=== PATIENT | male | born 1965 | race Hispanic/Latino ===

== ENCOUNTER 2020-03-23 22:39 | Emergency (ER) | payer OTHER, BC ==
[2020-03-23] MEDS ORDERED: LIDOCAINE HCL 2% VISCOUS 15 ML UDCUP ONE (23:51)
[2020-03-23] MEDS ORDERED: MAG HYDROX/AL HYDROX/SIMETH ES 30 ML SUSP UDCUP ONE (23:51)
[2020-03-23] MEDS ORDERED: DEXAMETHASONE SOD PHOSPHATE 10MG/ML 1ML VIAL ONE (23:53)
== END 2020-03-24 00:03 | disposition home or self-care (01) ==
LOC: EDH 22:39
DX: K13.79 Other lesions of oral mucosa (principal); B00.89 Other herpesviral infection; Z98.52 Vasectomy status
CPT/HCPCS: 99283; J1100

== ENCOUNTER → 2023-07-15 | Outpatient (CLI) | payer OTHER ==
[2023-07-15 09:08] LABS: INR 0.98 (0.85-1.15); PROTHROMBIN TIME 11.4 SEC (9.6-11.6)
[2023-07-15 09:10] LABS: PARTIAL THROMBOPLASTIN TIME 28.8 SEC (26.3-35.5)
== END | disposition home or self-care (01) ==
LOC: RAH 08:07
PROVIDERS: ATTEND Physician Assistant Medical
DX: R59.0 Localized enlarged lymph nodes (principal); G47.33 Obstructive sleep apnea (adult) (pediatric); K57.30 Diverticulosis of large intestine without perforation or abscess without bleeding; H93.19 Tinnitus, unspecified ear; M17.0 Bilateral primary osteoarthritis of knee; H91.90 Unspecified hearing loss, unspecified ear; N52.9 Male erectile dysfunction, unspecified; L71.9 Rosacea, unspecified; D35.2 Benign neoplasm of pituitary gland; Z82.49 Family history of ischemic heart disease and other diseases of the circulatory system; Z80.42 Family history of malignant neoplasm of prostate; Z80.1 Family history of malignant neoplasm of trachea, bronchus and lung; Z98.52 Vasectomy status; Z86.16 Personal history of COVID-19; Z98.890 Other specified postprocedural states; Z79.01 Long term (current) use of anticoagulants; Z79.899 Other long term (current) drug therapy
CPT/HCPCS: 36415; 38505; 76942; 85610; 85730; 88184; 88185; 88188; 88305

== ENCOUNTER 2023-08-23 07:28 | Day surgery (SDC) | payer OTHER ==
[2023-08-23] VITALS (14 sets, daily range): BP systolic 117–154; BP diastolic 64–87; PULSE 54–79; RESP 12–18
[~2023-08-23] VITALS: Ht 175.3 cm; Wt 102.9 kg
[~2023-08-23 07:28] MED LIST: CABE0.5T2 PO; CHOL200074 PO; LOSA50TA64 PO; MULTIVITAMIN PO; SILD100T PO
[2023-08-23 08:21] LABS: BASOPHILS # (AUTO) 0.03 K/uL (0.00-0.20); BASOPHILS % (AUTO) 0.5 % (0.0-5.0); EOSINOPHILS % (AUTO) 1.7 % (0.0-8.0); HEMATOCRIT 41.6 % (42-54); IMMATURE GRANULOCYTE ABSOLUTE 0.01 K/uL (0-1); LYMPHOCYTES % (AUTO) 32.7 % (21.0-51.0); MEAN CORPUSCULAR HEMOGLOBIN 27.8 pg (27.0-33.0); MEAN CORPUSCULAR HGB CONC 32.9 g/dL (32.0-36.0); MEAN CORPUSCULAR VOLUME 84.4 fL (79-99); MONOCYTES # (AUTO) 0.6 K/uL (0.1-1.0); MONOCYTES % (AUTO) 9.7 % (3.0-13.0); NEUTROPHILS # (AUTO) 3.3 K/uL (1.8-7.7); NEUTROPHILS % (AUTO) 55.2 % (40.0-77.0); PLATELET COUNT (AUTO) 221 K/uL (130-400); RED BLOOD CELL COUNT(AUTO) 4.93 MIL/uL (4.50-6.20); RED CELL DISTRIBUTION WIDTH 13.1 % (11.0-15.5)
[2023-08-23 08:39] LABS: INR 0.97 (0.85-1.15); PROTHROMBIN TIME 11.3 SEC (9.6-11.6)
[2023-08-23 08:40] LABS: PARTIAL THROMBOPLASTIN TIME 28.8 SEC (26.3-35.5)
[2023-08-23 08:41] LABS: CREATININE 0.9 mg/dL (0.5-1.5); POTASSIUM 4.2 mmol/L (3.5-5.1)
[2023-08-23] MEDS ORDERED: BUPIVACAINE/PF 0.5% 30ML VIAL ONE (08:46)
[2023-08-23] MEDS: CEFAZOLIN SODIUM 2 GM VIAL ONE ×2 (09:07→09:10)
[2023-08-23] MEDS ORDERED: LACTATED RINGERS 1000ML 1,000 ML IV ONE (09:07)
[2023-08-23] MEDS ORDERED: ONDANSETRON 4MG INJ ONE (09:08)
[2023-08-23] MEDS ORDERED: MIDAZOLAM HCL 1 MG/ML 2ML VIAL ONE (09:08)
[2023-08-23] MEDS ORDERED: ROCURONIUM 10MG/1ML SYR 10 MG/ML ML ONE (09:09)
[2023-08-23] MEDS ORDERED: PROPOFOL 10 MG/ML 20ML VIAL IV ONE (09:09)
[2023-08-23] MEDS ORDERED: FENTANYL CITRATE PF 50 MCG/1 ML 2ML VIAL ONE (09:09)
[2023-08-23] MEDS ORDERED: LIDOCAINE PF 100MG/5ML (2%) SYRINGE 5ML ONE (09:09)
[2023-08-23] MEDS ORDERED: SUCCINYLCHOLINE 200MG/10ML SYR ONE (09:09)
[2023-08-23] MEDS ORDERED: TRAM50TA4 PO (09:52)
[2023-08-23] MEDS ORDERED: DOCU-116 PO (09:52)
[2023-08-23] MEDS ORDERED: GABA-529 PO (09:52)
[2023-08-23] MEDS ORDERED: GLYCOPYRROLATE 1 MG/5 ML SYRINGE ONE (09:54)
[2023-08-23] MEDS ORDERED: NEOSTIGMINE 5MG/5ML SYR IV ONE (09:54)
[2023-08-23] MEDS ORDERED: SUGAMMADEX SODIUM 200 MG/2 ML VIAL IV ONE (10:07)
== END 2023-08-23 11:52 | disposition home or self-care (01) ==
LOC: DAH 07:28
PROVIDERS: ATTEND Surgery
DX: R59.0 Localized enlarged lymph nodes (principal); C82.31 Follicular lymphoma grade IIIa, lymph nodes of head, face, and neck; C85.11 Unspecified B-cell lymphoma, lymph nodes of head, face, and neck; I10 Essential (primary) hypertension; Z82.5 Family history of asthma and other chronic lower respiratory diseases; Z88.8 Allergy status to other drugs, medicaments and biological substances; Z80.42 Family history of malignant neoplasm of prostate; Z80.1 Family history of malignant neoplasm of trachea, bronchus and lung; Z72.89 Other problems related to lifestyle; Z82.49 Family history of ischemic heart disease and other diseases of the circulatory system; Z79.899 Other long term (current) drug therapy; Z98.890 Other specified postprocedural states
CPT/HCPCS: 38510; 80048; 85025; 85610; 85730; 88184; 88185; 88189; 88377; 36415; 88305; 88342; 88341; A4600; A4663; A4606; J7120; J3010; J0330; J3490; J2710; J2001; J2250; J2704; J2405; J0665; J0690; A4930 ×2; A4215; A4223; A4222; A4221